=== PATIENT | female | born 1960 | race Caucasian/White ===

== ENCOUNTER 2023-04-18 15:50 | Emergency (ER) | payer MEDICAID ==
[~2023-04-18] VITALS: Ht 165.1 cm; Wt 72.6 kg
[2023-04-18 15:58] VITALS: BP 128/64; PULSE 64; RESP 18; TEMP 98.1; O2SAT 100
[2023-04-18] MEDS ORDERED: ACET-10509 PO (17:32)
== END 2023-04-18 18:00 | disposition home or self-care (01) ==
LOC: MED 15:50
DX: S80.01XA Contusion of right knee, initial encounter (principal); M25.532 Pain in left wrist; Z79.899 Other long term (current) drug therapy; W19.XXXA Unspecified fall, initial encounter; Y93.89 Activity, other specified; Y92.89 Other specified places as the place of occurrence of the external cause; Y99.8 Other external cause status
CPT/HCPCS: 73110; 73562; 99284